=== PATIENT | female | born 1995 | race Hispanic/Latino ===

== ENCOUNTER 2017-07-07 05:29 | Inpatient (IN) | payer OTHER ==
[2017-07-07] MEDS ORDERED: MIDAZOLAM HCL 2 MG/2 ML INJ IV PRN (05:40)
[2017-07-07] MEDS ORDERED: CARBOPROST TROME 250 MCG/ML IM PRN (05:40)
[2017-07-07] MEDS ORDERED: PROMETHAZINE 25 MG/ML VIAL IM PRN (05:40)
[2017-07-07] MEDS ORDERED: Ringers Lactate 1,000 ML IV PRN (05:40)
[2017-07-07] MEDS ORDERED: METHYLERGONOVINE 0.2MG/ML AMP IM PRN (05:40)
[2017-07-07] MEDS ORDERED: MEPERIDINE HCL 25 MG/0.5 ML IV PRN (05:40)
[2017-07-07] MEDS ORDERED: BUTORPHANOL 1 MG/ML INJ IV PRN (05:40)
[2017-07-07] MEDS ORDERED: OXYTOCIN/LR 20 UNIT/1,000 ML BAG IV ONE (05:49)
[2017-07-07 05:54] LABS: RPR Titer ND
[2017-07-07 05:56] LABS: Urine Appearance CLEAR; Urine Bilirubin NEGATIVE (NEG); Urine Blood NEGATIVE (NEG); Urine Color YELLOW; Urine Glucose NEGATIVE (NEG); Urine Protein NEGATIVE (NEG); Urine Urobilinogen 0.2 mg/dL (0.2-1.0)
[2017-07-07 05:57] LABS: Urine Microscopic Reflex ORDER UMIC
[2017-07-07 06:00] VITALS: BMI 23.1
[2017-07-07] MEDS ORDERED: OXYTOCIN/LR 20 UNIT/1,000 ML BAG IV SCH ×2 (06:00→12:00)
[2017-07-07] MEDS ORDERED: Ringers Lactate 1,000 ML IV SCH (06:00)
[2017-07-07 06:03] LABS: Absolute Lymphocytes (CBC) 2.5 K/uL (0.7-4.9); Absolute Monocytes 0.5 K/uL (0.1-1.3); Absolute Neutrophil 4.8 K/uL (1.8-8.0); Basophils % 0.8 % (0-1.3); Eosinophils % 0.4 % (0-4.4); Hematocrit 27.9 % (36.0-45.0); Lymphocytes % 31.9 % (15.3-44.8); MCH 22.6 pg (27.0-35.0); MCV 70.6 fL (80-100); MPV 7.6 fL (7.6-11.3); Monocytes % 5.8 % (3.3-12.3); RBC Red Blood Cell Count 3.96 M/uL (3.86-4.86)
[2017-07-07 06:53] LABS: Urine Bacteria 20-50 /HPF (<20); Urine Culture Reflex Order REFLEXED; Urine RBC <5 /HPF (NONE SEEN)
[2017-07-07] MEDS ORDERED: FENTANYL CITR 100 MCG/2 ML IV ONE (09:29)
[2017-07-07] MEDS ORDERED: ROPIVACAINE HCL 100 ML IV PRN (09:29)
[2017-07-07] MEDS ORDERED: ROPIVACAINE HCL 0.2% 20ML AMP IV ONE (09:31)
[2017-07-07] MEDS ORDERED: FENTANYL CITR 100 MCG/2 ML ONE (09:41)
[2017-07-07] MEDS ORDERED: CARBOPROST TROME 250 MCG/ML IM ONE (10:39)
[2017-07-07] MEDS ORDERED: LIDOCAINE 1% 20 ML MDV ONE (10:39)
[2017-07-07] MEDS ORDERED: ACETAMINOPHEN 500 MG TAB PO PRN (11:02)
[2017-07-07] MEDS ORDERED: DIPHENHYDRAMINE 25 MG TAB/CAP PO PRN (11:02)
[2017-07-07] MEDS ORDERED: BISACODYL 10 MG RECTAL SUPP RECT PRN (11:02)
[2017-07-07] MEDS ORDERED: Oxycodone HCl/Acetaminophen 1 TAB TAB PO PRN (11:02)
[2017-07-07] MEDS ORDERED: DOCUSATE NA/SENNA CONC 1 TAB PO PRN (11:02)
[2017-07-07] MEDS ORDERED: IBUPROFEN 200 MG TAB PO PRN (11:02)
--- NOTE | 2017-07-07 11:04 | PREOPHP ---
Date of Admission: 07/07/2017 A 21-year-old, 2, para 1, 39 weeks 4 days for induction, 3.5 cm, 60% effaced, vertex, -1 stat ion. Rupture of membranes, clear fluid. She is alayna regularly every 2-3 minutes. Rh positiv e. Equivocal immunity to rubella and she has really not had her Tdap immunization during the pregnan cy as instructed. Strep is negative. Full admission talk. Anticipate delivery sometime later today . She will be going natural. DONI/LUPE Voice ID: [id number]
[2017-07-07] MEDS: Oxycodone HCl/Acetaminophen 1 TAB TAB PO PRN (12:44)
[2017-07-07] MEDS ORDERED: PROMETHAZINE 25 MG/ML VIAL IM ONE (14:21)
[2017-07-07] MEDS ORDERED: ONDANSETRON 4 MG (ODT) TAB PO PRN (14:21)
--- NOTE | 2017-07-07 23:25 | OP ---
Surgeon: Brandyn Gates MD A 21-year-old 2, para 1, 39 weeks 4 days, 2.5 to 3 cm on admission, rupture of membranes, angela t into an active labor at 5 cm, requested and received epidural anesthesia. This gave excellent effe ct during the remainder of labor and delivery. Second stage of 15 to 20 minutes. Spontaneous vagina l delivery of an estimated 7-pound male infant, Apgars 9 and 9. No episiotomy. No laceration. Schu ltze delivery of the placenta, which was inspected and noted to be intact and normal. Less than 300 cc blood loss. Rh positive, equivocal immunity to Rubella. This has been discussed with the patient . Tolerated all procedures well. Beta strep negative. Final Diagnoses: Term intrauterine , 39 weeks 4 days, vaginal delivery epidural anesthesia. DONI/LUPE Voice ID: [id number] Report ID: [id number]
[2017-07-08] MEDS: Oxycodone HCl/Acetaminophen 1 TAB TAB PO PRN ×2 (00:05→07:06)
[2017-07-08 01:03] LABS: RPR (Rapid Plasma Reagin) NON-REACT (NON-REACT)
[2017-07-08 07:40] VITALS: BP 111/70; TEMP 97.5
[2017-07-10 05:18] LABS: HBsAG Nonreactive (Nonreactive)
--- NOTE | 2017-07-11 11:39 | DS ---
Date of Discharge: 07/08/2017 Hospital Course: A 21-year-old 2, para 1, 39 weeks 4 days. Delivered an estimated 7-pound p eloy or minus male infant. Apgars 9 and 9. No episiotomy. No laceration. Epidural anesthesia. Les s than 300 cc blood loss, although she did have mild hypertonicity and was given Methergin e 1 time. Negative beta strep screen. Post , afebrile, ambulating, voiding. Lochia is normal . We will dismiss her later this morning to report back to my office in 6 weeks for followup, to rep ort any temperature elevation of 100 degrees or greater, severe pain, heavy bleeding, or any other ty pe of abnormalities. She is dismissed with tramadol, although she may decide to take Motrin instead. She has an equivocal immunity to Rubella and suggested she get Rubella immunization as well as Tdap . No post epidural problems. Full instructions given. Final Diagnoses: 1.Term intrauterine at 39 weeks 4 days, vaginal delivery, epidural anesthesia. 2.Tdap and Rubella immunization offered. DONI/LUPE Voice ID: [id number] Report ID: [id number]
== END 2017-07-08 14:45 | disposition home or self-care (01) | DRG 775 ==
LOC: 2ND-WC 05:29
PROVIDERS: ADMIT Specialist; ATTEND Specialist
PROC: 10907ZC Drainage of Amniotic Fluid, Therapeutic from Products of Conception, Via Natural or Artificial Opening (ICD-10-PCS; principal; 2017-07-07)
PROC: 10E0XZZ Delivery of Products of Conception, External Approach (ICD-10-PCS; 2017-07-07)
DX: O62.2 Other uterine inertia (principal); Z3A.39 39 weeks gestation of pregnancy; Z37.0 Single live birth
CPT/HCPCS: 36415; 81003; 81015; 85025; 86592; 86850; 86900; 86901; 87086; 87088; 87340; J2210; J2550; J2590; J2795; J3010

== ENCOUNTER 2018-09-18 18:50 | Emergency (ER) | payer OTHER, SELFPAY ==
--- OUTSIDE RECORDS SUMMARY | 2018-09-18 18:52 | XMS REPORT ---
:1995 [facility] Address [address] [place] [address] Dr. Bryant [address] [place] [id number] Care Team Providers Name Role Phone Unavailable Unavailable Unavailable Problems This patient has no known problems. Allergies, Adverse Reactions, Alerts This patient has no known allergies or adverse reactions. Medications This patient has no known medications.
--- NOTE | 2018-09-18 20:08 | ER ---
Nurse's Notes [facility] Name: Katrina Middleton Age: 22 yrs Sex: Female : 1995 Arrival Date: 09/18/2018 Time: 18:51 Bed Waiting Private MD: Diagnosis: Presentation: 09/18 19:01 Presenting complaint: Patient states: 5 weeks with vaginal bleeding and ak1 cramps. 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 pt stated she started bleeding last night. pt using a baby diaper for a pad. Transition of care: patient was not received from another setting of care. Onset of symptoms is unknown. Risk Assessment: Do you want to hurt yourself or someone else? Patient reports no desire to harm self or others. Initial Sepsis Screen: Does the patient meet any 2 criteria? No. Patient's initial sepsis screen is negative. Does the patient have a suspected source of infection? No. Patient's initial sepsis screen is negative. Care prior to arrival: None. 19:01 Method Of Arrival: Ambulatory ak1 19:01 Acuity: SHAD 3 ak1 Triage Assessment: 19:03 General: Appears in no apparent distress. Behavior is calm, cooperative. 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 - Social history:: Smoking status: Patient/guardian denies using tobacco. - Ebola Screening: : No symptoms or risks identified at this time. Vital Signs: 19:03 BP 114 / 63; Pulse 100; Resp 16; Temp 98.6; Pulse Ox 100% on R/A; Weight 52.62 kg; ak1 Height 5 ft. 5 in. (165.10 cm); Pain 6/10; 19:03 Body Mass Index 19.30 (52.62 kg, 165.10 cm) ak1 ED Course: 18:51 Patient arrived in ED. as 19:03 Triage completed. ak1 19:03 Arm band placed on Patient placed in waiting room, Patient notified of wait time. ak1 19:43 Patient's name was called from ER lobby. No response. aa1 20:06 Patient's name was called from ER lobby. No response. Unable to locate patient. Will ak1 disposition as left without being seen by a provider. Administered Medications: No medications were administered Outcome: 20:06 Patient left the ED. ak1 Signatures: Tiffanie Gurrola RN RN aa1 Kristin Valenzuela Amber, RN RN ak1
== END 2018-09-18 20:06 | disposition left against medical advice (07) ==
LOC: ER 18:50
DX: O20.9 Hemorrhage in early pregnancy, unspecified (principal); Z3A.01 Less than 8 weeks gestation of pregnancy; Z53.21 Procedure and treatment not carried out due to patient leaving prior to being seen by health care provider
CPT/HCPCS: 99281

== ENCOUNTER 2018-09-19 17:40 | Emergency (ER) | payer SELFPAY ==
--- OUTSIDE RECORDS SUMMARY | 2018-09-19 17:45 | XMS REPORT ---
:1995 Author [facility] Address [address] [place] [address] Dr. Bryant [address] [place] [address] Care Team Providers Name Role Phone Unavailable Unavailable Unavailable Problems This patient has no known problems. Allergies, Adverse Reactions, Alerts This patient has no known allergies or adverse reactions. Medications This patient has no known medications.
[2018-09-19 18:43] LABS: Urine Blood 2+ (NEG); Urine Glucose NEGATIVE (NEG); Urine Protein TRACE (NEG); Urine Specific Gravity 1.015 (1.005-1.030); Urine pH 8.5 (5.0-7.0)
[2018-09-19 18:46] LABS: Absolute Lymphocytes (CBC) 1.9 K/uL (0.7-4.9); Basophils % 1.4 % (0-1.3); Hematocrit 34.3 % (36.0-45.0); Lymphocytes % 33.7 % (15.3-44.8); MPV 7.5 fL (7.6-11.3); RBC Red Blood Cell Count 4.21 M/uL (3.86-4.86)
[2018-09-19] MEDS ORDERED: NA CHLORIDE 0.9% 1,000 ML ONE (18:46)
[2018-09-19 19:21] LABS: Potassium 3.6 mmol/L (3.5-5.1)
--- NOTE | 2018-09-19 19:36 | ER ---
Nurse's Notes [facility] Name: Katrina Middleton Age: 22 yrs Sex: Female : 1995 Arrival Date: 09/19/2018 Time: 17:44 Bed 27 Private MD: Diagnosis: Threatened Presentation: 09/19 17:52 Presenting complaint: Patient states: Vaginal bleeding for 24 hours that has improved aj today. Patient reports being 6 weeks . Transition of care: patient was not received from another setting of care. Onset of symptoms was September 18, 2018. Risk Assessment: Do you want to hurt yourself or someone else? Patient reports no desire to harm self or others. Initial Sepsis Screen: Does the patient meet any 2 criteria? No. Patient's initial sepsis screen is negative. Does the patient have a suspected source of infection? No. Patient's initial sepsis screen is negative. Care prior to arrival: None. 17:52 Method Of Arrival: Ambulatory aj 17:52 Acuity: SHAD 3 aj Triage Assessment: 17:53 General: Appears in no apparent distress. comfortable, Behavior is calm, cooperative, aj appropriate for age. Pain: Denies pain. Neuro: Level of Consciousness is awake, alert, obeys commands, Oriented to person, place, time, situation, Appropriate for age. Respiratory: Airway is patent Trachea midline Respiratory effort is even, unlabored, Respiratory pattern is regular, symmetrical. : Reports vaginal bleeding that is bright red, with clots. Derm: Skin is intact, is healthy with good turgor, Skin is pink, warm \T\ dry. normal. 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 - Social history:: Smoking status: Patient/guardian denies using tobacco. - Ebola Screening: : Patient negative for fever greater than or equal to 101.5 degrees Fahrenheit, and additional compatible Ebola Virus Disease symptoms Patient denies exposure to infectious person Patient denies travel to an Ebola-affected area in the 21 days before illness onset No symptoms or risks identified at this time. Screenin:28 Abuse screen: Denies threats or abuse. Denies injuries from another. Nutritional mg2 screening: No deficits noted. Tuberculosis screening: No symptoms or risk factors identified. Fall Risk IV access (20 points). Assessment: 19:16 General: Appears comfortable, Behavior is calm, cooperative. Pain: Complains of pain in mg2 abdomen Pain does not radiate. Pain currently is 2 out of 10 on a pain scale. Quality of pain is described as crampy, Pain began gradually, last night. Neuro: Level of Consciousness is awake, alert, obeys commands, Oriented to person, place, time, situation. Cardiovascular: Capillary refill < 3 seconds Patient's skin is warm and dry. Respiratory: Airway is patent Respiratory effort is even, unlabored, Respiratory pattern is regular, symmetrical. GI: No signs and/or symptoms were reported involving the gastrointestinal system. : Reports pain lower quadrant(s) vaginal bleeding that is spotty. EENT: No signs and/or symptoms were reported regarding the EENT system. Derm: Skin is intact, is healthy with good turgor, Skin is pink, warm \T\ dry. normal. 20:20 Reassessment: Patient states feeling better. Patient states symptoms have improved. mg2 20:22 Obstetrical Assessment: General assessment: awake and alert. mg2 Vital Signs: 17:53 BP 119 / 61; Pulse 86; Resp 16; Temp 98.4; Pulse Ox 99% on R/A; Weight 52.62 kg; Height aj 5 ft. 5 in. (165.10 cm); 20:21 BP 120 / 70; Pulse 85; Resp 17; Temp 98; Pulse Ox 99% on R/A; Pain 0/10; mg2 17:53 Body Mass Index 19.30 (52.62 kg, 165.10 cm) Vitals: 20:21 Heart Tones not done. mg2 ED Course: 17:44 Patient arrived in ED. as 17:53 Triage completed. aj 17:53 Arm band placed on left wrist. Patient placed in an exam room. aj 18:01 Tariq Portillo MD is Attending Physician. [facility] 18:05 Jude Meyers, ERIS is Primary Nurse. mg2 18:28 Initial lab(s) drawn, by me, sent to lab. Inserted saline lock: 22 gauge in right lt1 antecubital area, using aseptic technique. 19:29 Patient has correct armband on for positive identification. Pulse ox on. NIBP on. Door mg2 closed. Warm blanket given. 19:29 No provider procedures requiring assistance completed. mg2 19:36 El Enrique MD is Referral Physician. [facility] 20:21 IV discontinued, intact, bleeding controlled, No redness/swelling at site. Pressure mg2 dressing applied. 20:58 US Transvaginal Ob In Process Unspecified. EDMS Administered Medications: 18:35 Drug: NS 0.9% 1000 ml Route: IV; Rate: 1 bolus; Site: right antecubital; mg2 20:20 Follow up: Response: No adverse reaction; IV Status: Completed infusion mg2 Point of Care Testing: Urine : 20:22 hCG Reading: Positive; Control Reading: Positive; mg2 Outcome: 19:35 Discharge ordered by . [facility] 20:21 Discharged to home ambulatory, with family. mg2 20:21 Condition: stable 20:21 Discharge instructions given to patient, family, Instructed on discharge instructions, follow up and referral plans. medication usage, Demonstrated understanding of instructions, follow-up care, medications, Prescriptions given X 1. 20:22 Patient left the ED. mg2 Signatures: Dispatcher [employer] EDMS Lizett Govea RN RN aj Anderson, Corey, MD MD cha Martinez, Amelia as Gardose, Michele, RN RN mg2 Tran, Leah 1
--- NOTE | 2018-09-19 19:37 | EDPHYS ---
Physician Documentation [facility] Name: Katrina Middleton Age: 22 yrs Sex: Female : 1995 Arrival Date: 09/19/2018 Time: 17:44 Bed 27 Private MD: ED Physician Tariq Portillo HPI: 09/19 19:33 This 22 yrs old Female presents to ER via Ambulatory with complaints of mike Vaginal Bleeding, + Preg <12wks, Pelvic Pain. 19:33 The patient presents to the emergency department with vaginal bleeding. The estimated [facility] gestational age is 6 weeks. course: care: none. 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 - Social history:: Smoking status: Patient/guardian denies using tobacco. - Ebola Screening: : Patient negative for fever greater than or equal to 101.5 degrees Fahrenheit, and additional compatible Ebola Virus Disease symptoms Patient denies exposure to infectious person Patient denies travel to an Ebola-affected area in the 21 days before illness onset No symptoms or risks identified at this time. ROS: 19:34 Constitutional: Negative for fever, chills, and weight loss, Eyes: Negative for injury, mike pain, redness, and discharge, ENT: Negative for injury, pain, and discharge, Neck: Negative for injury, pain, and swelling, Cardiovascular: Negative for chest pain, palpitations, and edema, Respiratory: Negative for shortness of breath, cough, wheezing, and pleuritic chest pain, Back: Negative for injury and pain, MS/Extremity: Negative for injury and deformity, Skin: Negative for injury, rash, and discoloration, Neuro: Negative for headache, weakness, numbness, tingling, and seizure, Psych: Negative for depression, anxiety, suicide ideation, homicidal ideation, and hallucinations, Allergy/Immunology: Negative for hives, rash, and allergies, Endocrine: Negative for neck swelling, polydipsia, polyuria, polyphagia, and marked weight changes, Hematologic/Lymphatic: Negative for swollen nodes, abnormal bleeding, and unusual bruising. 19:34 Abdomen/GI: Positive for abdominal pain. 19:34 : Positive for vaginal bleeding. Exam: 19:34 Constitutional: This is a well developed, well nourished patient who is awake, alert, mike and in no acute distress. Head/Face: Normocephalic, atraumatic. Eyes: Pupils equal round and reactive to light, extra-ocular motions intact. Lids and lashes normal. Conjunctiva and sclera are non-icteric and not injected. Cornea within normal limits. Periorbital areas with no swelling, redness, or edema. ENT: Nares patent. No nasal discharge, no septal abnormalities noted. Tympanic membranes are normal and external auditory canals are clear. Oropharynx with no redness, swelling, or masses, exudates, or evidence of obstruction, uvula midline. Mucous membranes moist. Neck: Trachea midline, no thyromegaly or masses palpated, and no cervical lymphadenopathy. Supple, full range of motion without nuchal rigidity, or vertebral point tenderness. No Meningismus. Chest/axilla: Normal chest wall appearance and motion. Nontender with no deformity. No lesions are appreciated. Cardiovascular: Regular rate and rhythm with a normal S1 and S2. No gallops, murmurs, or rubs. Normal PMI, no JVD. No pulse deficits. Respiratory: Lungs have equal breath sounds bilaterally, clear to auscultation and percussion. No rales, rhonchi or wheezes noted. No increased work of breathing, no retractions or nasal flaring. Abdomen/GI: Soft, non-tender, with normal bowel sounds. No distension or tympany. No guarding or rebound. No evidence of tenderness throughout. Back: No spinal tenderness. No costovertebral tenderness. Full range of motion. Skin: Warm, dry with normal turgor. Normal color with no rashes, no lesions, and no evidence of cellulitis. MS/ Extremity: Pulses equal, no cyanosis. Neurovascular intact. Full, normal range of motion. Neuro: Awake and alert, GCS 15, oriented to person, place, time, and situation. Cranial nerves II-XII grossly intact. Motor strength 5/5 in all extremities. Sensory grossly intact. Cerebellar exam normal. Normal gait. Psych: Awake, alert, with orientation to person, place and time. Behavior, mood, and affect are within normal limits. Vital Signs: 17:53 BP 119 / 61; Pulse 86; Resp 16; Temp 98.4; Pulse Ox 99% on R/A; Weight 52.62 kg; Height aj 5 ft. 5 in. (165.10 cm); 20:21 BP 120 / 70; Pulse 85; Resp 17; Temp 98; Pulse Ox 99% on R/A; Pain 0/10; mg2 17:53 Body Mass Index 19.30 (52.62 kg, 165.10 cm) aj MDM: 18:01 Patient medically screened. [facility] 19:35 Data reviewed: vital signs, nurses notes, lab test result(s), radiologic studies, [facility] ultrasound. 09/19 18:03 Order name: Quantitative Hcg; Complete Time: 19:31 [facility] 09/19 18:03 Order name: Abo/rh Typing; Complete Time: 19:31 [facility] 09/19 18:03 Order name: Basic Metabolic Panel; Complete Time: 19:31 [facility] 09/19 18:03 Order name: CBC with Diff; Complete Time: 19:31 [facility] 09/19 18:39 Order name: Urine Dipstick--Ancillary (enter results); Complete Time: 19:31 09/19 18:39 Order name: Urine --Ancillary (enter results); Complete Time: 19:31 09/19 18:03 Order name: Urine Test (obtain specimen); Complete Time: 18:34 [facility] 09/19 18:03 Order name: IV Saline Lock; Complete Time: 18:28 [facility] 09/19 18:03 Order name: Labs collected and sent; Complete Time: 18:28 [facility] 09/19 18:03 Order name: NPO; Complete Time: 18:34 [facility] 09/19 18:03 Order name: Urine Dipstick-Ancillary (obtain specimen); Complete Time: 18:34 [facility] 09/19 18:03 Order name: US Transvaginal Ob mike Administered Medications: 18:35 Drug: NS 0.9% 1000 ml Route: IV; Rate: 1 bolus; Site: right antecubital; mg2 20:20 Follow up: Response: No adverse reaction; IV Status: Completed infusion mg2 Point of Care Testing: Urine : 20:22 hCG Reading: Positive; Control Reading: Positive; mg2 Disposition: 09/19/18 19:35 Discharged to Home. Impression: Threatened . - Condition is Stable. - Discharge Instructions: Threatened Miscarriage, Vaginal Bleeding During , First Trimester, First Trimester of , [id number], First Trimester of , Threatened Miscarriage, [id number]-Mdbb, Pelvic Rest. - Prescriptions for Vitamin 27- 0.8 mg Oral Tablet - take 1 tablet by ORAL route once daily; 30 tablet. - Medication Reconciliation Form, Thank You Letter, Antibiotic Education, Prescription Opioid Use form. - Follow up: Private Physician; When: 2 - 3 days; Reason: Recheck today's complaints, Continuance of care, Re-evaluation by your physician. Follow up: El Enrique MD; When: 2 - 3 days; Reason: Recheck today's complaints, Re-evaluation by your physician. - Problem is new. - Symptoms have improved. Signatures: Dispatcher [employer] EDLizett Traylor, RN RN Tariq Gtz MD MD cha Gardose, Michele, RN RN mg2 Corrections: (The following items were deleted from the chart) 19:36 19:35 09/19/2018 19:35 Discharged to Home. Impression: Threatened . Condition mike is Stable. Forms are Medication Reconciliation Form, Thank You Letter, Antibiotic Education, Prescription Opioid Use. Follow up: Private Physician; When: 2 - 3 days; Reason: Recheck today's complaints, Continuance of care, Re-evaluation by your physician. Problem is new. Symptoms have improved. mike 20:22 19:36 09/19/2018 19:35 Discharged to Home. Impression: Threatened . Condition mg2 is Stable. Forms are Medication Reconciliation Form, Thank You Letter, Antibiotic Education, Prescription Opioid Use. Follow up: Private Physician; When: 2 - 3 days; Reason: Recheck today's complaints, Continuance of care, Re-evaluation by your physician. Follow up: El Enrique; When: 2 - 3 days; Reason: Recheck today's complaints, Re-evaluation by your physician. Problem is new. Symptoms have improved. mike
[2018-09-19 20:31] VITALS: O2SAT 99
[2018-09-19 20:33] VITALS: BP 120/70; TEMP 98
--- NOTE | 2018-09-20 07:36 | RAD REPORT ---
EXAM DESCRIPTION: US - Transvaginal OB - 09/19/2018 8:57 pm CLINICAL HISTORY: Abdominal pain, pelvic pain, Preliminary findings provided at the time of the study. COMPARISON: None. FINDINGS: An irregularly-shaped gestational sac is identified within the endometrial cavity. Movemen t of the sac was observed during the examination. Echogenic debris is seen within the gestational sac but no well-defined yolk sac or pole. No cardiac activity could be identified within the echog enic material within the gestational sac. No hematoma or mass within the endometrial cavity otherwise noted. Sac measurements would correspond to a 5 week 3 day age. No adnexal mass seen suspicious for ectopic . Both ovaries are identifiable. Doppler evaluat ion shows blood flow within the ovarian stroma. IMPRESSION: Intrauterine gestational sac without yolk sac or pole confirmed. Gestational sac w as seen to be mobile within the endometrial cavity. Normal ovaries. No adnexal finding to suspect ectopic .
== END 2018-09-19 20:22 | disposition home or self-care (01) ==
LOC: ER 17:40
DX: O20.0 Threatened abortion (principal); Z3A.01 Less than 8 weeks gestation of pregnancy; Z88.1 Allergy status to other antibiotic agents
CPT/HCPCS: 36415; 76817; 80048; 81003; 81025; 84702; 85025; 86900; 86901; 96360; 96361; 99284; J7030

== ENCOUNTER 2020-04-23 22:29 | Emergency (ER) | payer OTHER ==
--- OUTSIDE RECORDS SUMMARY | 2020-04-23 22:31 | XMS REPORT | Continuity of Care Document ---
:1995 Author Organization [facility] t Address [address] [place] [address] Care Team Providers Name Role Phone Doctor Unassigned, Name Attending Clinician Unavailable Kyle Burton Attending Clinician Ultrasound Attending Clinician Unavailable Ander Ng Attending Clinician Lab/Pedi Attending Clinician Unavailable Problems This patient has no known problems. Allergies, Adverse Reactions, Alerts This patient has no known allergies or adverse reactions. Medications This patient has no known medications. Procedures This patient has no known procedures. Encounters Start End Encounter Admission Attending Care Care Encounter Source Date/Time Date/Time Type Type Clinicians Facility Department ID 2020-04-21 2020-04-21 Orders Doctor CHANEL [id number] 00:00:00 00:00:00 Only UnassNAKUL xiao [id number] [place] [facility] 4.2.7.2.686 [id number] [id number] 2020-04-09 2020-04-09 Orders Doctor CHANEL [id number] 00:00:00 00:00:00 Only UnassNAKUL xiao [id number] [place] [facility] 4.2.7.2.686 [id number] [id number] 2020-04-01 2020-04-01 Abstract LILIANA Daugehrty [id number] 00:00:00 00:00:00 Stacia Wright DIRECTOR CLOUD TRANSFORMATION [id number] [facility] [id number] MATERNAL [id number] & CHILD 107 [facility] 2020-03-27 2020-03-27 Rubber Mold Maker Karlos, [facility] [id number] 14:12:45 14:41:58 Visit Ang-Mfm DIRECTOR CLOUD TRANSFORMATION [id number] REG[facility]AL [id number] MATERNAL [id number] & CHILD 369 [facility] 2020-03-27 2020-03-27 Routine Dat, [facility] [id number] 13:23:41 14:12:09 Stacia C DIRECTOR CLOUD TRANSFORMATION [id number] Visit REGIONAL [id number] MATERNAL [id number] & CHILD 107 [facility] 2020-03-25 2020-03-25 Telephone Inder [facility] 1.2.840.114 [id number] 00:00:00 00:00:00 Varsha N DIRECTOR CLOUD TRANSFORMATION [id number] REGIONAL [id number] MATERNAL [id number] & CHILD 107 [facility] 2020-03-04 2020-03-04 Rubber Mold Maker Lab/Pedi, [facility] [id number] 13:33:11 14:08:26 Visit Pea-Rmchp DIRECTOR CLOUD TRANSFORMATION [id number] REGIONAL [id number] MATERNAL [id number] & CHILD 125 [facility] 2020-02-27 2020-02-27 Telephone Dat NCTAE [id number] [id number] 00:00:00 00:00:00 Stacia C DIRECTOR CLOUD TRANSFORMATION [id number] REGIONAL [id number] MATERNAL [id number] & CHILD 107 [facility] 2020-02-26 2020-02-26 Initial Dat NCTAE [id number] 08:38:09 10:01:42 Stacia C DIRECTOR CLOUD TRANSFORMATION [id number] Visit REGIONAL [id number] MATERNAL [id number] & CHILD 107 [facility] 2020-02-26 2020-02-26 Orders Doctor YANIQUE [id number] 00:00:00 00:00:00 Only Unassigned, NAKUL 350.1.13.10 [place] [facility] 4.2.7.2.686 [id number] Results This patient has no known results.
[2020-04-23] MEDS ORDERED: CEFTRIAXONE/SWI 1gm 1 GM/10 ML SYR ONE (23:58)
[2020-04-23] MEDS ORDERED: NA CHLORIDE 0.9% 1,000 ML ONE (23:58)
[2020-04-23] MEDS ORDERED: ONDANSETRON 4 MG/2 ML VIAL ONE (23:58)
[2020-04-23 23:59] LABS: Urine Blood 2+ (NEG); Urine Glucose NEGATIVE (NEG); Urine Protein 3+ (NEG); Urine Specific Gravity 1.025 (1.005-1.030); Urine pH 6.5 (5.0-7.0)
[2020-04-24 00:05] LABS: Absolute Lymphocytes (CBC) 0.6 K/uL (0.7-4.9); Basophils % 0.3 % (0-1.3); Hematocrit 32.2 % (36.0-45.0); Lymphocytes % 5.8 % (15.3-44.8); MPV 7.3 fL (7.6-11.3); RBC Red Blood Cell Count 4.08 M/uL (3.86-4.86)
[2020-04-24 00:24] LABS: BUN Blood Urea Nitrogen 8 mg/dL (7-18); Bicarbonate 21 mmol/L (21-32); Glucose Level 84 mg/dL (74-106); Potassium 3.5 mmol/L (3.5-5.1); Sodium Level 137 mmol/L (136-145)
--- NOTE | 2020-04-24 00:51 | EDPHYS ---
Physician Documentation [facility] Name: Katrina Middleton Age: 24 yrs Sex: Female : 1995 Arrival Date: 04/23/2020 Time: 22:31 Bed 23 Private MD: ED Physician Tariq Portillo HPI: 04/23 23:02 This 24 yrs old Female presents to ER via Ambulatory with complaints of jmm Vomiting. 23:02 The patient presents to the emergency department with nausea, vomiting. Onset: The jmm symptoms/episode began/occurred this morning. Possible causes: . The symptoms are aggravated by nothing. The symptoms are alleviated by nothing. This is a 24 year old female with no chronic medical conditions that presents to the ED with complaints of vomiting beginning this morning. Denies fever, abdominal pain, vaginal bleeding. Patient has a confirmed 13 week IUP. . HOOP COILER: 23:05 Verified zb Historical: - Allergies: 23:02 Bactrim; sg - Home Meds: 23:02 Iron CR Oral [Active]; sg - PMHx: 23:02 Anemia; sg - PSHx: 23:02 None; sg - Immunization history:: Adult Immunizations up to date. - Social history:: Smoking status: Patient denies any tobacco usage or history of. ROS: 23:02 Constitutional: Negative for fever, chills, and weight loss, Cardiovascular: Negative jmm for chest pain, palpitations, and edema, Respiratory: Negative for shortness of breath, cough, wheezing, and pleuritic chest pain. 23:02 Abdomen/GI: Positive for vomiting. 23:02 All other systems are negative. Exam: 23:02 Constitutional: This is a well developed, well nourished patient who is awake, alert, jmm and in no acute distress. Head/Face: atraumatic. Eyes: EOMI, no conjunctival erythema appreciated ENT: Moist Mucus Membranes Neck: Trachea midline, Supple Chest/axilla: Normal chest wall appearance and motion. Cardiovascular: Regular rate and rhythm. No edema appreciated Respiratory: Normal respirations, no respiratory distress appreciated 23:02 Back: Normal ROM Skin: General appearance color normal 23:02 Abdomen/GI: Inspection: abdomen appears normal, Bowel sounds: normal, Palpation: abdomen is soft and non-tender, in all quadrants. 23:02 Musculoskeletal/extremity: ROM: intact in all extremities. 23:02 Skin: Appearance: Color: normal in color. 23:02 Neuro: Orientation: appropriate for stated age, Mentation: is normal, Memory: is normal. 23:02 Psych: Behavior/mood is pleasant, cooperative. Vital Signs: 22:59 Pulse 119; Resp 18; Temp 98.1(TE); Pulse Ox 100% on R/A; Weight 60.78 kg (R); Height 5 sg ft. 6 in. (167.64 cm) (R); 04/24 00:02 BP 95 / 57; Pulse 95; Resp 16; Pulse Ox 97% on R/A; zb 04/23 22:59 Body Mass Index 21.63 (60.78 kg, 167.64 cm) sg MDM: 04/23 23:02 Patient medically screened. [facility] 04/24 00:49 Data reviewed: vital signs, nurses notes. Counseling: I had a detailed discussion with elle the patient and/or guardian regarding: the historical points, exam findings, and any diagnostic results supporting the discharge/admit diagnosis, lab results, the need for outpatient follow up, to return to the emergency department if symptoms worsen or persist or if there are any questions or concerns that arise at home. ED course: Patient is alert and non toxic in appearance in the ED. No signs of resp distress. patient is advised to follow up with pcp and otherwise given strict return precautions. . 04/23 23:15 Order name: Urine Dipstick--Ancillary (enter results); Complete Time: 00:02 tt3 04/23 23:15 Order name: Urine --Ancillary (enter results); Complete Time: 00:02 tt3 04/23 23:16 Order name: Urine Culture [facility] 04/23 23:27 Order name: CBC with Diff [facility] 04/23 23:27 Order name: BMP; Complete Time: 00:39 [facility] 04/24 00:08 Order name: Manual Differential [facility] 04/23 23:15 Order name: Urine Dipstick-Ancillary (obtain specimen); Complete Time: 23:15 tt3 04/23 23:15 Order name: Urine Test (obtain specimen); Complete Time: 23:15 tt3 04/23 23:27 Order name: Saline Lock; Complete Time: 00:00 [facility] Administered Medications: 04/23 23:50 Drug: NS 0.9% 1000 ml Route: IV; Rate: 1 bolus; Site: right forearm; zb 23:50 Drug: Zofran (Ondansetron) 4 mg Route: IVP; Site: right forearm; b 04/24 00:13 Follow up: Response: No adverse reaction 04/23 23:50 Drug: Rocephin 1 grams Route: IV; Rate: calculated rate; Site: right forearm; b 04/24 00:13 Follow up: Response: No adverse reaction; IV Status: Completed infusion; IV Intake: 50mlzb Disposition: 06:44 Co-signature as Attending Physician, Tariq Portillo MD I agree with the assessment and mike plan of care. Disposition: 04/24/20 00:50 Discharged to Home. Impression: Vomiting, Urinary tract infection, site not specified. - Condition is Stable. - Discharge Instructions: Eating Plan for Hyperemesis Gravidarum, and Urinary Tract Infection. - Prescriptions for Cephalexin 500 mg Oral Capsule - take 1 capsule by ORAL route every 6 hours for 10 days; 40 capsule. Zofran ODT 4 mg Oral tablet,disintegrating - place 1 tablet by TRANSLINGUAL route every 4-6 hours; 20 tablet. - Medication Reconciliation Form, Thank You Letter, Antibiotic Education, Prescription Opioid Use form. - Follow up: Private Physician; When: 1 - 2 days; Reason: Recheck today's complaints, Continuance of care, Re-evaluation by your physician. Signatures: Dispatcher [employer] Lio Garcia RN RN sg Anderson, Corey, MD MD cha Mickail, Joel, PA PA jmm Trim, Tyler tt3 Melvi Garcia RN RN zb Corrections: (The following items were deleted from the chart) 01:05 00:50 04/24/2020 00:50 Discharged to Home. Impression: Vomiting; Urinary tract sg infection, site not specified. Condition is Stable. Forms are Medication Reconciliation Form, Thank You Letter, Antibiotic Education, Prescription Opioid Use. Follow up: Private Physician; When: 1 - 2 days; Reason: Recheck today's complaints, Continuance of care, Re-evaluation by your physician. elle
--- NOTE | 2020-04-24 00:51 | ER ---
Nurse's Notes [facility] Name: Katrina Middleton Age: 24 yrs Sex: Female : 1995 Arrival Date: 04/23/2020 Time: 22:31 Bed 23 Private MD: Diagnosis: Vomiting;Urinary tract infection, site not specified Presentation: 04/23 22:59 Chief complaint: Patient states: Im 13 wks , I have an appointment tomorrow with RUCHI Reynolds for this , pt states having been vomiting all day today, having the "shakes" as well. Coronavirus screen: Client denies travel out of the [place] in the last 14 days. Ebola Screen: Patient negative for fever greater than or equal to 101.5 degrees Fahrenheit, and additional compatible Ebola Virus Disease symptoms Patient denies exposure to infectious person. Patient denies travel to an Ebola-affected area in the 21 days before illness onset. No symptoms or risks identified at this time. Initial Sepsis Screen: Does the patient meet any 2 criteria? HR > 90 bpm. Does the patient have a suspected source of infection? No. Patient's initial sepsis screen is negative. Risk Assessment: Do you want to hurt yourself or someone else? Patient reports no desire to harm self or others. Onset of symptoms was April 23, 2020. Care prior to arrival: None. Transition of care: patient was not received from another setting of care. 22:59 Acuity: SHAD 3 sg 22:59 Method Of Arrival: Ambulatory sg MAITRE D': 23:05 Verified zb Historical: - Allergies: 23:02 Bactrim; sg - Home Meds: 23:02 Iron CR Oral [Active]; sg - PMHx: 23:02 Anemia; sg - PSHx: 23:02 None; sg - Immunization history:: Adult Immunizations up to date. - Social history:: Smoking status: Patient denies any tobacco usage or history of. Screenin:04 Abuse screen: Denies threats or abuse. Denies injuries from another. Nutritional zb screening: No deficits noted. Tuberculosis screening: No symptoms or risk factors identified. Fall Risk None identified. Assessment: 23:01 General: Appears in no apparent distress. comfortable, Behavior is calm, cooperative, zb appropriate for age, Reports chills for 1-2 days, feeling ill for 1-2 days, fatigue for 1-2 days, Denies fever. Pain: Denies pain. Neuro: Level of Consciousness is awake, alert, obeys commands, Oriented to person, place, time, situation, Reports weakness in generalized. Cardiovascular: Reports None Heart tones S1 S2 present Capillary refill < 3 seconds in bilateral fingers Patient's skin is warm and dry. Respiratory: Airway is patent Respiratory effort is even, unlabored, Respiratory pattern is regular, symmetrical, Breath sounds are clear bilaterally. GI: Abdomen is flat, Reports nausea, vomiting, since 2 days. : Reports . EENT: No signs and/or symptoms were reported regarding the EENT system. Derm: Skin is intact, is healthy with good turgor, Skin is dry, Skin is normal, Skin temperature is warm. Musculoskeletal: Range of motion: intact in all extremities. 23:04 Reassessment: ECP at bedside. zb Vital Signs: 22:59 Pulse 119; Resp 18; Temp 98.1(TE); Pulse Ox 100% on R/A; Weight 60.78 kg (R); Height 5 sg ft. 6 in. (167.64 cm) (R); 04/24 00:02 BP 95 / 57; Pulse 95; Resp 16; Pulse Ox 97% on R/A; zb 04/23 22:59 Body Mass Index 21.63 (60.78 kg, 167.64 cm) ED Course: 04/23 22:31 Patient arrived in ED. am4 22:57 Bud Medina PA is PHCP. [facility] 22:57 Tariq Portillo MD is Attending Physician. [facility] 22:58 Melvi Garcia, ERIS is Primary Nurse. zb 22:59 Arm band placed on. sg 23:02 Triage completed. sg 23:05 Patient has correct armband on for positive identification. Bed in low position. Call zb light in reach. Side rails up X 1. Pulse ox on. NIBP on. Door closed. Noise minimized. Warm blanket given. 04/24 00:01 Inserted saline lock: 20 gauge in right forearm, using aseptic technique. Blood zb collected. 00:05 Primary Nurse role handed off by Melvi Garcia, ERIS sg 00:05 Lio Caro RN is Primary Nurse. sg 01:00 No provider procedures requiring assistance completed. IV discontinued, intact, sg bleeding controlled, No redness/swelling at site. Pressure dressing applied. Administered Medications: 04/23 23:50 Drug: NS 0.9% 1000 ml Route: IV; Rate: 1 bolus; Site: right forearm; zb 23:50 Drug: Zofran (Ondansetron) 4 mg Route: IVP; Site: right forearm; zb 04/24 00:13 Follow up: Response: No adverse reaction zb 04/23 23:50 Drug: Rocephin 1 grams Route: IV; Rate: calculated rate; Site: right forearm; zb 04/24 00:13 Follow up: Response: No adverse reaction; IV Status: Completed infusion; IV Intake: 50mlzb Intake: 00:13 IV: 50ml; Total: 50ml. zb Outcome: 00:50 Discharge ordered by . elle 01:00 Discharged to home ambulatory, with family. sg 01:00 Condition: good 01:00 Discharge instructions given to patient, pt encouraged to keep appointment with MAITRE D' in the AM, pt stated understanding Instructed on discharge instructions, follow up and referral plans. safety practices, Demonstrated understanding of instructions, follow-up care. 01:05 Patient left the ED. sg Signatures: Lio Caro RN RN Bud Antoine PA PA jmm Brown, Zipporah, RN RN zb Martinez, Ashley am4 Corrections: (The following items were deleted from the chart) 04/23 23:05 23:01 Neuro: Level of Consciousness is awake, alert, obeys commands, Oriented to zb person, place, time, situation, zb 04/24 00:13 00:13 Response: No adverse reaction; IV Status: Completed infusion; IV Intake: 20ml zb zb
[2020-04-24 01:38] LABS: Blood Morphology Comment NOT SEEN (NOT SEEN); Platelet Estimate ADEQ
[2020-04-24 04:19] VITALS: TEMP 98.1
[2020-04-24 04:20] VITALS: BP 95/57; O2SAT 97
== END 2020-04-24 01:05 | disposition home or self-care (01) ==
LOC: ER 22:29
DX: O23.41 Unspecified infection of urinary tract in pregnancy, first trimester (principal); Z3A.13 13 weeks gestation of pregnancy; Z88.1 Allergy status to other antibiotic agents
CPT/HCPCS: 96365; 87088; 85025; 87086; 80048; 36415; 81025; 87077; 87186; 81003; 96375; 99284; J0696; J7030; J2405

== ENCOUNTER 2020-10-22 04:14 | Inpatient (IN) | payer OTHER ==
[2020-10-22] MEDS ORDERED: METHYLERGONOVINE 0.2MG/ML AMP IM PRN (04:16)
[2020-10-22] MEDS ORDERED: MEPERIDINE HCL 25 MG/ML SYR IV PRN (04:16)
[2020-10-22] MEDS ORDERED: CARBOPROST TROME 250 MCG/ML IM PRN (04:16)
[2020-10-22] MEDS ORDERED: PROMETHAZINE INJ 25 MG/ML AMP IM PRN (04:16)
[2020-10-22] MEDS ORDERED: BUTORPHANOL 1 MG/ML INJ IV PRN (04:16)
[2020-10-22] MEDS ORDERED: Ringers Lactate 1,000 ML IV PRN (04:16)
--- OUTSIDE RECORDS SUMMARY | 2020-10-22 04:16 | XMS REPORT | Continuity of Care Document ---
:1995 Author Organization [facility] t Address [address] [place] [address] Care Team Providers Name Role Phone Gino Watt DO Attending Clinician Doctor Unassigned, Name Attending Clinician Unavailable Dat ABELP, C Attending Clinician Ultrasound Attending Clinician Unavailable Inder BLANCHARD N Attending Clinician Lab/Pedi Attending Clinician Unavailable Problems This patient has no known problems. Allergies, Adverse Reactions, Alerts This patient has no known allergies or adverse reactions. Medications This patient has no known medications. Procedures This patient has no known procedures. Encounters Start End Encounter Admission Attending Care Care Encounter Source Date/Time Date/Time Type Type Clinicians Facility Department ID 2020-05-20 2020-05-20 Patient LILIANA Watt [id number] [id number] 00:00:00 00:00:00 Outreach [id number] [id number] [id number] 2020-04-21 2020-04-21 Orders Doctor CHANEL 1.2.840.114 [id number] 00:00:00 00:00:00 Only UnassignedNAKUL 350.1.13.10 Black [facility] 4.2.7.2.686 [id number] 2020-04-09 2020-04-09 Orders Doctor CHANEL 1.2.840.114 [id number] 00:00:00 00:00:00 Only Unassigned, NAKUL [id number] Black [facility] [id number] [id number] 2020-04-01 2020-04-01 Abstract Dat [facility] 1.2.840.114 [id number] 00:00:00 00:00:00 Stacia C LICENSED NURSE PRACTITIONER [id number] REGIONAL [id number] MATERNAL [id number] & CHILD 107 [facility] 2020-03-27 2020-03-27 Auto Inspection Specialist Ultrasound, [facility] 1.2.840.114 [id number] 14:12:45 14:41:58 Visit Ang-Mfm LICENSED NURSE PRACTITIONER [id number] REGIONAL [id number] MATERNAL [id number] & CHILD 369 [facility] 2020-03-27 2020-03-27 [facility] [id number] 13:23:41 14:12:09 Stacia C LICENSED NURSE PRACTITIONER 350.1.13.10 Visit [facility] [id number] MATERNAL [id number] & CHILD 107 [facility] 2020-03-25 2020-03-25 Telephone Inder [facility] 1.2.840.114 [id number] 00:00:00 00:00:00 Varsha N LICENSED NURSE PRACTITIONER [id number] REGIONAL [id number] MATERNAL [id number] & CHILD 107 [facility] 2020-03-04 2020-03-04 Auto Inspection Specialist Lab/Pedi [facility] 1.2.840.114 [id number] 13:33:11 14:08:26 Visit Pea-Rmchp LICENSED NURSE PRACTITIONER 350.1.13.10 REGIONAL 4.2.7.2.686 MATERNAL [id number] & CHILD 125 [facility] 2020-02-27 2020-02-27 Telephone Dat [facility] 1.2.840.114 [id number] 00:00:00 00:00:00 Stacia C LICENSED NURSE PRACTITIONER 350.1.13.10 REGIONAL 4.2.7.2.686 MATERNAL [id number] & CHILD 107 [facility] 2020-02-26 2020-02-26 Initial Akinsipe, [facility] [id number] 08:38:09 10:01:42 Stacia Wright LICENSED NURSE PRACTITIONER 350.1.13.10 Visit [facility] [id number] MATERNAL [id number] & CHILD 107 [facility] 2020-02-26 2020-02-26 Orders Doctor YANIQUE [id number] [id number] 00:00:00 00:00:00 Only Unassigned, NAKUL 350.1.13.10 Black [facility] 4.2.7.2.686 [id number] Results This patient has no known results.
[2020-10-22] MEDS ORDERED: PENICILLIN 5 MU in NA CHLORIDE 0.9% 100 ML IV ONE (04:29)
[2020-10-22] MEDS ORDERED: Ringers Lactate 1,000 ML IV SCH (05:00)
[2020-10-22] MEDS ORDERED: OXYTOCIN/LR 20 UNIT/1,000 ML BAG IV SCH ×2 (05:00→09:00)
[2020-10-22 05:20] VITALS: BMI 22.6
[2020-10-22 05:26] LABS: Absolute Lymphocytes (CBC) 2.4 K/uL (0.7-4.9); Basophils % 0.6 % (0-1.3); Hematocrit 30.3 % (36.0-45.0); Lymphocytes % 33.4 % (15.3-44.8); MPV 7.6 fL (7.6-11.3); RBC Red Blood Cell Count 4.12 M/uL (3.86-4.86)
[2020-10-22 05:33] LABS: Urine Appearance CLEAR (Clear); Urine Bilirubin NEGATIVE (Negative); Urine Blood NEGATIVE (Negative); Urine Color YELLOW (Yellow); Urine Glucose NEGATIVE (Negative); Urine Protein NEGATIVE (Negative); Urine Specific Gravity <=1.005 (1.005-1.030)
[2020-10-22 06:26] LABS: Urine Bacteria 20-50 /HPF (<20); Urine RBC <5 /HPF (NONE SEEN)
[2020-10-22] MEDS ORDERED: LIDOCAINE 1% MPF 30 ML VIAL ONE (07:34)
[2020-10-22] MEDS ORDERED: DOCUSATE NA/SENNA CONC 1 TAB PO PRN (08:50)
[2020-10-22] MEDS ORDERED: BISACODYL 10 MG RECTAL SUPP PR PRN (08:50)
[2020-10-22] MEDS ORDERED: ACETAMINOPHEN 500 MG TAB PO PRN (08:50)
[2020-10-22] MEDS ORDERED: DIPHENHYDRAMINE 25 MG TAB/CAP PO PRN (08:50)
[2020-10-22] MEDS ORDERED: Oxycodone HCl/Acetaminophen 1 TAB TAB PO PRN ×2 (08:50)
--- NOTE | 2020-10-22 08:59 | PREOPHP ---
Date of Admission: 10/22/2020 History Of Present Illness: A 24-year-old 4, para 2, 39 weeks gestation for induction her re quest, thorough discussion prior to admission. Family History: Maternal grandmother with hypertension. Paternal grandmother with diabetes. Past Medical History: No serious medical illnesses. Allergies: ALLERGIC TO BACTRIM. Medications: No medications prior to admission other than vitamins and iron. Social History: Does not smoke. Review of Systems: HEENT: Clear. Pupils are equal, round, reactive to light and accommodation. Conjunctivae well perf used. No oral, lingual, or buccal lesions. Chest and Lungs: Clear. Heart: Without murmurs, thrills, heaves, or rubs. Breasts: Without masses on previous visits. Abdomen: Term size. Extremities: Clear without edema, cyanosis, or clubbing. Pelvic: The patient is good 3 cm vertex, -1 station, well applied. Rupture of membranes, clear flui d. After rupture of membranes, the patient is 3-1/2, good 50% to 60%. She knows she will probably go rapidly once she gets to 5 cm. She plans on natural childbirth, which she has done before. Full labor talk given. The patient has had a dose of penicillin as s he is beta strep positive. COVID negative. Rubella immune. Anticipate delivery rather rapidly when she g ets into active labor. DONI/LUPE Voice ID: [id number]
[2020-10-22] MEDS ORDERED: PENICILLIN 2.5 MU in NA CHLORIDE 0.9% 100 ML IV SCH (09:00)
--- NOTE | 2020-10-22 10:55 | OP ---
Surgeon: Brandyn Gates MD Procedure In Detail: A 24-year-old, 4, para 2, 39 weeks gestation, 2.5 to 3 cm this morning. Rupture of membranes, clear fluid. During the labor, the patient received Stadol 1 mg IV Phenergan 25 mg IM x1. After achieving 4-5 cm, went to complete rapidly. Second stage consisted of 1 series of pushes. Spontaneous vaginal delivery of a 5 pounds 10 ounces female. Nuchal cord x2 loosely. Ap gars 9 and 9. No episiotomy. No laceration. Schultze delivery of the placenta, which was inspected and noted to be intact and normal, 150 cc or less blood loss. Rh positive, immune to rubella, strep positive. Received penicillin 1 dose 5 million units. Tolerated all procedures well. Final Diagnoses: Term intrauterine . Labor induction. Vaginal delivery. Penicillin proph ylaxis. Nuchal cord x2 loosely. DONI/LUPE Voice ID: [id number] Report ID: [id number]
[2020-10-22] MEDS: IBUPROFEN 200 MG TAB PO PRN ×2 (12:43→22:52)
[2020-10-23 01:34] LABS: RPR (Rapid Plasma Reagin) NON-REACT (NON-REACT)
--- NOTE | 2020-10-23 07:35 | DS ---
Hospital Course: This is a 24-year-old female 4, para 2, 39 weeks gestation, came in for lab or induction. Pros and cons of this thoroughly discussed prior to admission, 2.5 cm on admission. R upture of membranes, clear fluid. Went rapidly to complete within the next hour and a half. Used St adol 1 mg IV, Phenergan 25 mg IM, otherwise Lamaze breathing techniques. Spontaneous vaginal deliver y of a 5-pound 10 ounces female, Apgars 9 and 9. Loose nuchal cord x2. No episiotomy. No laceratio n. Schultze delivery of the placenta, which was inspected and noted to be intact and normal. 150 mL or less blood loss. The patient received penicillin 1 dose during the labor secondary to positive s trep status. , afebrile, ambulating and voiding. Lochia is normal. Requests no analgesic s on dismissal. Is immune to Rubella. COVID negative. Tdap shot again offered as it has been durin g the . Final Diagnoses: Term intrauterine at 39 weeks, labor induction vaginal delivery, penicill in prophylaxis. Nuchal cord x2 loosely. NBC/MODL Voice ID: [id number] Report ID: [id number]
[2020-10-23] MEDS: IBUPROFEN 200 MG TAB PO PRN (07:59)
[2020-10-23 08:06] VITALS: BP 118/74; TEMP 97.5
[2020-10-23] MEDS ORDERED: Tdap (Diph,Pertuss(Acell),Tet Vac) 0.5 ML SYR IMVAC ONE (08:44)
[2020-10-26 01:13] LABS: HBsAG Nonreactive (Nonreactive)
== END 2020-10-23 10:15 | disposition home or self-care (01) | DRG 807 ==
LOC: 2ND-WC 04:14
PROVIDERS: ADMIT Specialist; ATTEND Specialist
PROC: 10E0XZZ Delivery of Products of Conception, External Approach (ICD-10-PCS; principal; 2020-10-22)
PROC: 10907ZC Drainage of Amniotic Fluid, Therapeutic from Products of Conception, Via Natural or Artificial Opening (ICD-10-PCS; 2020-10-22)
PROC: 3E033VJ Introduction of Other Hormone into Peripheral Vein, Percutaneous Approach (ICD-10-PCS; 2020-10-22)
DX: O99.824 Streptococcus B carrier state complicating childbirth (principal); Z37.0 Single live birth; Z3A.39 39 weeks gestation of pregnancy; Z20.822 Contact with and (suspected) exposure to COVID-19; Z23 Encounter for immunization
CPT/HCPCS: 36415; 81001; 85025; 86592; 86901; 87086; 87088; 87340; 90471; 90715; J0595; J2210; J2540; J2550; J2590; J7120; U0003